=== PATIENT | female | born 2000 | race African-American/Black ===

== ENCOUNTER 2020-07-15 13:33 | Emergency (ER) | payer MEDICAID ==
[2020-07-15] MEDS ORDERED: Ketorolac Tromethamine 15 MG/ML VIAL ONE (14:30)
[2020-07-15] MEDS ORDERED: Ketorolac Tromethamine 30 MG/ML VIAL IM SCH (14:45)
== END 2020-07-15 15:03 | disposition home or self-care (01) ==
LOC: CSHERS 13:33 → EEVIPCON 13:33 → CSHERS 15:03
DX: R51.9 Headache, unspecified (principal)
CPT/HCPCS: 96372; 99283; J1885